=== PATIENT | female | born 1985 | race African-American/Black ===

== ENCOUNTER 2017-07-10 16:31 | Emergency (ER) | payer MEDICAID ==
[~2017-07-10] VITALS: Ht 152.4 cm; Wt 75.0 kg
[~2017-07-10 16:31] MED LIST: DOXY10TA PO; IBUP600 PO; IBUP800T23 PO; METR1TAB76 PO; PREN1CAP7 PO; PREN29TA PO; TERC0.4C2 VAGINAL
[2017-07-10 16:34] VITALS: BP 147/75; PULSE 100; RESP 14; TEMP 97.7; O2SAT 100
--- NOTE | 2017-07-10 17:56 | PD ---
HPI Chief Complaint: Abdominal Pain Time Seen by Provider: 17:31 Travel History International Travel<30 days: No Contact w/Intl Traveler<30days: No Traveled to known affect area: No History of Present Illness HPI c/o mild llq discomfort, relieved by resting, worsened by ambulating and walking , not just by standing alone, it is a pulling, sometimes sharp discomfort, 3/10 , patient is otherwise normal in all other aspects and is here for eval more out of family pressure than anything else.. denies n/v/d/cp/combs/ also denies vag bleeding pcp: [facility]: amy couch all:nkda pmhx:denies (, 1ab, 1 premie, 1 FT, at 12 weeks gest currently) PFSH Past Medical History Blood Disorders: No Cancer: No Cardiovascular Problems: No Diabetes: No Diminished Hearing: No Endocrine: No Immune Disorder: No Musculoskeletal: No Neurologic: No Psychiatric: No Reproductive: No Respiratory: No Immunizations Current: Yes Thyroid Disease: No Tetanus Vaccination: Unknown ?: LMP: 04/18/17 : 4 Para: 2 Miscarriage: 1 Past Surgical History Section: Yes (x 2) Other Surgery: Yes ( X2) Social History Alcohol Use: No Tobacco Use: Yes Substance Use: No Allergies-Medications (Allergen,Severity, Reaction): Coded Allergies: No Known Allergies (Unverified , 06/18/17) Reported Meds & Prescriptions Reported Meds & Active Scripts Active Macrobid (Nitrofurantoin Monoh/Nitrofur Macro) 100 Mg Cap 100 Mg PO BID Citranatal [place] ( W/O Vit A W/ Fe Fumar) 27-1-260 Mg Cap 1 Cap PO DAILY Plus Iron 29-1 mg ( Vit-Iron Carbonyl) 29 Mg Iron-1 Mg Tab 1 Tab PO DAILY Diclegis (Doxylamine-Pyridoxine) 10-10 Mg Tab 10 Cap PO QHS Review of Systems Except as stated in HPI: all other systems reviewed are Neg General / Constitutional: No: Fever Eyes: No: Visual changes HENT: No: Headaches Cardiovascular: No: Chest Pain or Discomfort Respiratory: No: Shortness of Breath Gastrointestinal: No: Abdominal Pain Genitourinary: No: Dysuria Musculoskeletal: Positive: Pain (left ant hip area pain) Skin: No Rash Neurologic: No: Weakness Psychiatric: No: Depression Endocrine: No: Polydipsia Hematologic/Lymphatic: No: Easy Bruising Physical Exam Narrative GENERAL: SKIN: Warm and dry. HEAD: Atraumatic. Normocephalic. EYES: Pupils equal and round. No scleral icterus. No injection or drainage. ENT: No nasal bleeding or discharge. Mucous membranes pink and moist. NECK: Trachea midline. No JVD. CARDIOVASCULAR: Regular rate and rhythm. RESPIRATORY: No accessory muscle use. Clear to auscultation. Breath sounds equal bilaterally. GASTROINTESTINAL: Abdomen soft, non-tender, gravid abdomen c/w dates, left anterior asis region ttp and reproducible MUSCULOSKELETAL: Extremities without clubbing, cyanosis, or edema. No obvious deformities. NEUROLOGICAL: Awake and alert. No obvious cranial nerve deficits. Motor grossly within normal limits. Five out of 5 muscle strength in the arms and legs. Normal speech. PSYCHIATRIC: Appropriate mood and affect; insight and judgment normal. Data Data Last Documented VS Vital Signs Date Time Temp Pulse Resp B/P (MAP) Pulse Ox O2 Delivery O2 Flow Rate FiO2 07/10/17 19:44 07/10/17 16:34 97.7 100 14 100 Orders Orders Urinalysis - C+S If Indicated (07/10/17 17:46) Urine Culture (07/10/17 18:00) Ed Discharge Order (07/10/17 19:35) Labs Laboratory Tests Test 07/10/17 18:00 Urine Color YELLOW Urine Turbidity HAZY Urine pH 6.0 Urine Specific [place] 1.020 Urine Protein TRACE mg/dL Urine Glucose (UA) NEG mg/dL Urine Ketones NEG mg/dL Urine Occult Blood SMALL Urine Nitrite NEG Urine Bilirubin NEG Urine Urobilinogen 2.0 MG/DL Urine Leukocyte Esterase NEG Urine RBC 2 /hpf Urine WBC 2 /hpf Urine Squamous Epithelial Cells 28 /hpf Urine Bacteria MOD /hpf Urine Mucus FEW /lpf Microscopic Urinalysis Comment CULTURE INDICATED MDM Medical Decision Making Medical Screen Exam Complete: Yes Emergency Medical Condition: Yes Medical Record Reviewed: Yes Differential Diagnosis uti v muscular v uterine ligament Narrative Course ua findings c/w uti will prescribe macrobid...based on physical examination pain was reproducible on palpation c/w muscular strain Procedures Procedure Narrative bedside limited ultrasound: pelvic showed iup, active fetus, fht in 140's Diagnosis Primary Impression: uti Additional Impression: muscle strain Scripts Nitrofurantoin Monohydrate Macrocrystals (Macrobid) 100 Mg Cap 100 MG PO BID for Infection, #14 CAP 0 Refills Prov: Ze Clark MD 07/10/17 Disposition: 01 DISCHARGE HOME Condition: Stable Ze Clark MD Jul 10, 2017 17:56
[2017-07-10 18:26] LABS: BACTERIA, URINE MOD /hpf; BILIRUBIN, URINE NEG (NEG); BLOOD, URINE SMALL (NEG); GLUCOSE,URINE NEG (NEG); KETONE, URINE NEG (NEG); MUCUS URINE FEW /lpf (OCC); NITRITE,URINE NEG (NEG); SQUAMOUS EPITHELIAL CELL URINE 28 /hpf (0-5); URINE COLOR YELLOW (YELLW/STRAW); URINE LEUKOCYTE ESTERASE NEG (NEG)
[2017-07-10] MEDS ORDERED: MACR100C2 PO (18:47)
== END 2017-07-10 20:02 | disposition home or self-care (01) ==
LOC: NEPD 16:31 → MERGE 16:31 → NEPD 20:02
DX: N39.0 Urinary tract infection, site not specified (principal); S39.011A Strain of muscle, fascia and tendon of abdomen, initial encounter; X58.XXXA Exposure to other specified factors, initial encounter; Z72.0 Tobacco use; Z79.899 Other long term (current) drug therapy
CPT/HCPCS: 81001; 87086; 99284

== ENCOUNTER 2017-07-14 04:17 | Emergency (ER) | payer MEDICAID ==
[~2017-07-14] VITALS: Ht 152.4 cm; Wt 75.0 kg
[~2017-07-14 04:17] MED LIST changes: +MACR100C2 PO; -METR1TAB76 PO; -TERC0.4C2 VAGINAL
[2017-07-14 04:19] VITALS: BP 119/70; PULSE 108; RESP 16; TEMP 98.1; O2SAT 99
[2017-07-14 05:44] LABS: BETA HCG QUANT 121222 MIU/ML (0-5)
[2017-07-14 06:12] LABS: BLOOD, URINE LARGE (NEG); COMMENT (UR) CULTURE INDICATED; CULTURE IF INDICATED CULTURE INDICATED; GLUCOSE,URINE NEG (NEG); KETONE, URINE NEG (NEG); MUCUS URINE FEW /lpf (OCC); NITRITE,URINE NEG (NEG); PH, URINE 6.5 (5.0-8.5)
[2017-07-14 06:13] LABS: URINE COLOR RED (YELLW/STRAW)
[2017-07-14 06:19] VITALS: BP 110/64; PULSE 81; RESP 16; TEMP 98.3; O2SAT 99
--- NOTE | 2017-07-14 06:27 | PD ---
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 pt c/o vaginal bleeding since she woke up this morning at 3am. Multiple episodes, approx 10 pads, no clots, no abnormal discharge. pt reports dx of UTI 2 days prior and she has been compliant with abx. no fever/chills. no abdominal/pelvic pain. PFSH Past Medical History Asthma: No Blood Disorders: No Anxiety: Yes Depression: No Heart Rhythm Problems: No Cancer: No High Cholesterol: Yes Chest Pain: No Congestive Heart Failure: No COPD: No Diminished Hearing: No Endocrine: No Gastrointestinal Disorders: No Genitourinary: No Hypertension: No Immune Disorder: No Implanted Vascular Access Dvce: No Musculoskeletal: No Neurologic: No Reproductive: No Respiratory: Yes (BRONCHITIS) Immunizations Current: Yes Sleep Apnea: No Tetanus Vaccination: < 5 Years ?: LMP: 04/14/2017 12 weeks : 3 Para: 2 : 1 Past Surgical History Section: Yes Gynecologic Surgery: Yes Other Surgery: Yes ( x2) Social History Alcohol Use: Yes (wine occ.) Tobacco Use: No Substance Use: No Allergies-Medications (Allergen,Severity, Reaction): Coded Allergies: No Known Allergies (Verified , 01/27/16) Reported Meds & Prescriptions Reported Meds & Active Scripts Active Ibuprofen 800 Mg Tab 800 Mg PO Q6H PRN Motrin 600 Mg Tab (Ibuprofen) 600 Mg Tab 600 Mg PO Q6H PRN Review of Systems Except as stated in HPI: all other systems reviewed are Neg General / Constitutional: No: Fever Physical Exam Narrative GENERAL: 31 yo F, WNWD, NAD SKIN: Warm and dry. HEAD: Atraumatic. Normocephalic. EYES: Pupils equal and round. No scleral icterus. No injection or drainage. ENT: No nasal bleeding or discharge. Mucous membranes pink and moist. NECK: Trachea midline. No JVD. CARDIOVASCULAR: Regular rate and rhythm. RESPIRATORY: No accessory muscle use. Clear to auscultation. Breath sounds equal bilaterally. GASTROINTESTINAL: Abdomen soft, non-tender, nondistended. Hepatic and splenic margins not palpable. MUSCULOSKELETAL: Extremities without clubbing, cyanosis, or edema. No obvious deformities. NEUROLOGICAL: Awake and alert. No obvious cranial nerve deficits. Motor grossly within normal limits. Five out of 5 muscle strength in the arms and legs. Normal speech. PSYCHIATRIC: Appropriate mood and affect; insight and judgment normal. Data Data Last Documented VS Vital Signs Date Time Temp Pulse Resp B/P (MAP) Pulse Ox O2 Delivery O2 Flow Rate FiO2 07/14/17 06:19 98.3 81 16 110/64 99 07/14/17 04:19 Room Air VS reviewed Orders Orders Beta Hcg (Quant/Titer) (07/14/17 04:31) Urinalysis - C+S If Indicated (07/14/17 04:31) Rhogam Only (07/14/17 04:50) Urine Culture (07/14/17 05:55) Labs Laboratory Tests Test 07/14/17 04:45 07/14/17 05:55 Human Chorionic Gonadotropin, Quant [id number] MIU/ML Urine Color RED Urine Turbidity HAZY Urine pH 6.5 Urine Specific [place] 1.023 Urine Protein 300 mg/dL Urine Glucose (UA) NEG mg/dL Urine Ketones NEG mg/dL Urine Occult Blood LARGE Urine Nitrite NEG Urine Bilirubin NEG Urine Urobilinogen LESS THAN 2.0 MG/DL Urine Leukocyte Esterase TRACE Urine RBC /hpf Urine WBC 66 /hpf Urine Mucus FEW /lpf Microscopic Urinalysis Comment CULTURE INDICATED MDM Medical Decision Making Medical Screen Exam Complete: Yes Emergency Medical Condition: Yes Medical Record Reviewed: Yes Differential Diagnosis threatened ab, uti, complete ab Narrative Course ta sono: IUP with FHR approx 140s rhogam given Beta 121,000; 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 Hopefully, we have met your expectations on today's visit. You are welcome to return to [facility] at any time, as we are committed to meeting the health care needs of our community. FOLLOW UP WITH PATTERN MARKER IN 48 HOURS FOR A "REPEAT BETA HCG TEST." Med/Other Pt SpecificInfo: Prescription(s) given Disposition: DISCHARGE HOME Condition: Stable Js Espinoza MD Jul 14, 2017 06:27
== END 2017-07-14 07:04 | disposition home or self-care (01) ==
LOC: NEPE 04:17
DX: O20.0 Threatened abortion (principal); R82.90 Unspecified abnormal findings in urine; Z3A.12 12 weeks gestation of pregnancy
CPT/HCPCS: 81001; 84702; 87086; 90384; 99283; J2790

== ENCOUNTER → 2017-08-26 | Outpatient (CLI) | payer MEDICAID ==
[~2017-08-26] MED LIST changes: -MACR100C2 PO
== END ==
LOC: HPND 09:08
PROVIDERS: ATTEND Obstetrics & Gynecology
DX: O30.032 Twin pregnancy, monochorionic/diamniotic, second trimester (principal); O34.212 Maternal care for vertical scar from previous cesarean delivery; O99.332 Smoking (tobacco) complicating pregnancy, second trimester
CPT/HCPCS: 76811; 76812; 76817

== ENCOUNTER → 2017-09-09 | Outpatient (CLI) | payer MEDICAID | LOC: HPND 11:25 | PROVIDERS: ATTEND Obstetrics & Gynecology | DX: O30.032 Twin pregnancy, monochorionic/diamniotic, second trimester (principal) | CPT/HCPCS: 76815; 76817 ==

== ENCOUNTER → 2017-09-23 | Outpatient (CLI) | payer MEDICAID ==
[~2017-09-23] MED LIST changes: -IBUP600 PO; -IBUP800T23 PO
== END ==
LOC: HPND 09:50
PROVIDERS: ATTEND Obstetrics & Gynecology
DX: O35.8XX0 Maternal care for other (suspected) fetal abnormality and damage, not applicable or unspecified (principal); O30.032 Twin pregnancy, monochorionic/diamniotic, second trimester; O40.2XX2 Polyhydramnios, second trimester, fetus 2
CPT/HCPCS: 76816; 76825; 76827; 93325

== ENCOUNTER 2017-12-04 08:30 | Observation (INO) | payer MEDICAID ==
[2017-12-04] VITALS (60 sets, daily range): BP systolic 120–134; BP diastolic 63–81; PULSE 49–114; RESP 18; TEMP 97.4–98.1
[~2017-12-04] VITALS: Ht 154.9 cm; Wt 83.0 kg
[2017-12-04] MEDS ORDERED: LACTATED RINGER'S 1000 ML INJ 1,000 ML IV ONE (09:45)
--- NOTE | 2017-12-04 09:50 | PD ---
HPI Chief Complaint cough Date Seen: Dec 04, 2017 Time Seen: 09:10 Travel History International Travel<30 Days: No Contact w/Intl Traveler<30Days: No Known Affected Area: No History of Present Illness HPI Ms. Peraza is a 32-year-old at 31/6 weeks gestation with monochorionic- diamniotic twins here due to concern about cough. She states that she has been having a productive cough for 2 weeks. Is productive of at first greenish sputum, but now is clear. She had a fever on Thursday, 2 days ago, of 101F, but no fever since. She does experience occasional chills. She spoke to her OB provider at [facility] who recommended Robitussin-DM, Benadryl, Tylenol Cold and flu. However, these medications have not worked for her. She is also experiencing a stuffy nose and rhinorrhea of clear mucus. She states that she has abdominal pain when she coughs. No pleuritic pain. No chest pain, shortness of breath. She did have a sick contact 2-3 weeks ago before her symptoms started. No vaginal bleeding, is having contractions but they are not regular, is feeling the babies move, no dysuria. 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 Denies alcohol, tobacco, or illicit drug use Alcohol Use: No Tobacco Use: No Substance Abuse: No Allergies-Medications (Allergen,Severity, Reaction): Coded Allergies: No Known Allergies (Verified Allergy, Unknown, 12/04/17) Home Meds Active Scripts W/O Vit A W/ Fe Fumar (Citranatal [place]) 27-1-260 Mg Cap, 1 CAP PO DAILY for Nutritional Supplement, #30 CAP 5 Refills Prov:Daysi De La Rosa CNM POWER SWITCHBOARD OPERATOR 06/23/17 Vit-Iron Carbonyl ( Plus Iron 29-1 mg) 29 Mg Iron-1 Mg Tab, 1 TAB PO DAILY for Nutritional Supplement, #30 TAB 6 Refills Prov:Daysi De La Rosa MASSIMO MALAVE 06/23/17 Doxylamine-Pyridoxine (Diclegis) 10-10 Mg Tab, 10 CAP PO qhs for nausea, #30 CAP 2 Refills Prov:Nikhil Isidro MD 06/18/17 Review of Systems General / Constitutional: Fever (101F 2 days ago), Chills (occasionally) Eyes: No: Blurred Vision Cardiovascular: No: Chest Pain or Discomfort Respiratory: Cough, No: Short of Breath Gastrointestinal: Abdominal Pain (with coughing) Genitourinary: No: Dysuria Musculoskeletal: No: Weakness, Edema Skin: No Rash Physical Exam Narrative GENERAL: Well-nourished, well-developed patient. SKIN: Warm and dry. HEAD: Normocephalic and atraumatic. EYES: No scleral icterus. No injection or drainage. ENT: No nasal drainage noted. Mucous membranes pink. Airway patent. NECK: Supple, trachea midline. No JVD. CARDIOVASCULAR: Regular rate and rhythm without murmurs, gallops, or rubs. RESPIRATORY: Breath sounds equal bilaterally. No accessory muscle use. BREASTS: Bilateral exam showed no masses , no retractions, no nipple discharge. ABDOMEN/GI: Abdomen soft, non-tender, bowel sounds present, no rebound, no guarding Gravid to 31 weeks size GENITOURINARY: External Genitalia: intact and normal in appearance Cervix: posterior Dilatation: 0 Effacement: 50 Station: high Presentation: both twins were breech on last ultrasound Membranes: intact Uterine Contractions: q2-5min FHT's: Category: 1 Baseline: Twin A 130s, Twin B 140s Reactive: yes Variability: moderate Decels: none EXTREMITIES: No cyanosis or edema. BACK: Nontender without obvious deformity. No CVA tenderness. NEUROLOGICAL: Awake and alert. Motor and sensory grossly within normal limits. Five out of 5 muscle strength in all muscle groups. Normal speech. Data Data Vital Signs Reviewed: Yes Orders Orders Vital Signs (Adult) .ON ADMISSION (12/04/17 09:31) ^ Labor Status (12/04/17 09:31) ^ Non Stress Test (12/04/17 09:31) ^ Hydration (12/04/17 09:31) Influenzae A/B Antigen (12/04/17 09:31) MDM Plan 32-year-old and 31/6 weeks gestation of monochorionic-diamniotic twins resenting with URI symptoms. CBC shows no leukocytosis. FHT shows category 1 tracing, reassuring; however, patient is dion every 2-5 minutes Cervix is closed, 50% effaced, and high -FFN negative -LR bolus -UA, CBC -One dose of Terbutaline 0.25mg IM Influenza B positive -Start Tamiflu 75mg BID po -Phenergan-Codeine 5ml po q4h for cough Marcela Quiroz MD R1 Dec 04, 2017 09:50
[2017-12-04 10:42] LABS: BASOPHIL % 0.2 % (0.0-2.0); EOSINOPHIL % 0.5 % (0.0-4.0); HEMATOCRIT 37.5 % (35.0-46.0); HEMOGLOBIN 12.3 GM/DL (11.6-15.3); LYMPH % 14.9 % (9.0-44.0); LYMPHOCYTE # 0.8 TH/MM3 (1.0-4.8); MEAN CELL VOLUME 79.7 FL (80.0-100.0); MEAN CORPUSCULAR HEMOGLOBIN 26.2 PG (27.0-34.0); MEAN CORPUSCULAR HGB CONC 32.8 % (32.0-36.0); MEAN PLATELET VOLUME 9.1 FL (7.0-11.0); MONO % 8.6 % (0.0-8.0); MONOCYTE # 0.5 TH/MM3 (0-0.9); NEUT % 75.8 % (16.0-70.0); PLATELET COUNT 184 TH/MM3 (150-450); RED BLOOD COUNT 4.71 MIL/MM3 (4.00-5.30); RED CELL DISTRIBUTION WIDTH 15.7 % (11.6-17.2); WHITE BLOOD COUNT 5.3 TH/MM3 (4.0-11.0)
[2017-12-04] MEDS ORDERED: TERBUTALINE INJ 1 MG/ML AMP ONE (10:59)
[2017-12-04] MEDS ORDERED: TERBUTALINE INJ 1 MG/ML AMP SQ ONE (11:00)
[2017-12-04 11:02] LABS: BACTERIA, URINE FEW /hpf; BILIRUBIN, URINE NEG (NEG); BLOOD, URINE NEG (NEG); GLUCOSE,URINE NEG (NEG); KETONE, URINE NEG (NEG); NITRITE,URINE NEG (NEG); PH, URINE 6.5 (5.0-8.5); SQUAMOUS EPITHELIAL CELL URINE 9 /hpf (0-5); URINE COLOR YELLOW (YELLW/STRAW); URINE LEUKOCYTE ESTERASE LARGE (NEG)
[2017-12-04] MEDS: OSELTAMIVIR PHOSPHATE 75 MG CAP PO SCH ×2 (11:56→23:50)
[2017-12-04] MEDS: PROMETHAZINE/CODEINE 6.25 MG/10 MG/5 ML CUP PO PRN ×2 (11:56→23:50)
[2017-12-04] MEDS ORDERED: SODIUM CHLORIDE 0.9% FLUSH 10 ML FLUSH IV FLUSH PRN (13:00)
[2017-12-04] MEDS ORDERED: ONDANSETRON ODT 4 MG TAB PO PRN (13:00)
[2017-12-04] MEDS ORDERED: ZOLPIDEM TARTRATE 5 MG TAB PO PRN (13:00)
[2017-12-04] MEDS ORDERED: ONDANSETRON HCL 4 MG/2 ML VIAL IV PUSH PRN (13:00)
[2017-12-04] MEDS ORDERED: ALUMINUM/MAGNESIUM/SIMETH 30 ML CUP PO PRN (13:00)
[2017-12-04] MEDS ORDERED: ACETAMINOPHEN 325 MG TAB PO PRN (13:00)
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
--- NOTE | 2017-12-04 15:12 | HHI.HP ---
HPI Chief Complaint cough Date Seen: Dec 04, 2017 Time Seen: 15:12 Travel History International Travel<30 Days: No Contact w/Intl Traveler<30Days: No Known Affected Area: No History of Present Illness HPI Ms. Peraza is a 32-year-old at 31/6 weeks gestation with monochorionic- diamniotic twins here due to concern about cough. She states that she has been having a productive cough for 2 weeks. Is productive of at first greenish sputum, but now is clear. She had a fever on Thursday, 2 days ago, of 101F, but no fever since. She does experience occasional chills. She spoke to her OB provider at [facility] who recommended Robitussin-DM, Benadryl, Tylenol Cold and flu. However, these medications have not worked for her. She is also experiencing a stuffy nose and rhinorrhea of clear mucus. She states that she has abdominal pain when she coughs. No pleuritic pain. No chest pain, shortness of breath. She did have a sick contact 2-3 weeks ago before her symptoms started. No vaginal bleeding, is having contractions but they are not regular, is feeling the babies move, no dysuria. 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 Denies alcohol, tobacco, or illicit drug use Alcohol Use: No Tobacco Use: No Substance Abuse: No Allergies-Medications (Allergen,Severity, Reaction): Coded Allergies: No Known Allergies (Verified Allergy, Unknown, 12/04/17) Home Meds Active Scripts W/O Vit A W/ Fe Fumar (Citranatal [place]) 27-1-260 Mg Cap, 1 CAP PO DAILY for Nutritional Supplement, #30 CAP 5 Refills Prov:Daysi De La Rosa CNM 06/23/17 Vit-Iron Carbonyl ( Plus Iron 29-1 mg) 29 Mg Iron-1 Mg Tab, 1 TAB PO DAILY for Nutritional Supplement, #30 TAB 6 Refills Prov:Daysi De La Rosa MASSIMO PAINT STOCKMAN 06/23/17 Doxylamine-Pyridoxine (Diclegis) 10-10 Mg Tab, 10 CAP PO qhs for nausea, #30 CAP 2 Refills Prov:Nikhil Isidro MD 06/18/17 Review of Systems General / Constitutional: Fever, Chills Cardiovascular: No: Chest Pain or Discomfort Respiratory: No: Short of Breath Gastrointestinal: Abdominal Pain Genitourinary: No: Dysuria Musculoskeletal: No: Weakness, Edema Skin: No Rash Physical Exam Vital Signs Date Time Temp Pulse Resp B/P (MAP) Pulse Ox O2 Delivery O2 Flow Rate FiO2 12/04/17 10:20 91 12/04/17 10:19 89 125/71 (89) 12/04/17 10:15 98 12/04/17 09:55 95 12/04/17 09:50 101 12/04/17 09:45 99 12/04/17 09:25 49 12/04/17 09:20 100 12/04/17 09:10 100 12/04/17 09:08 98 127/81 (96) Narrative GENERAL: Well-nourished, well-developed patient. SKIN: Warm and dry. HEAD: Normocephalic and atraumatic. EYES: No scleral icterus. No injection or drainage. ENT: No nasal drainage noted. Mucous membranes pink. Airway patent. NECK: Supple, trachea midline. No JVD. CARDIOVASCULAR: Regular rate and rhythm without murmurs, gallops, or rubs. RESPIRATORY: Breath sounds equal bilaterally. No accessory muscle use. BREASTS: Bilateral exam showed no masses , no retractions, no nipple discharge. ABDOMEN/GI: Abdomen soft, non-tender, bowel sounds present, no rebound, no guarding Gravid to 31 weeks size GENITOURINARY: External Genitalia: intact and normal in appearance Cervix: posterior Dilatation: 0 Effacement: 50 Station: high Presentation: both twins were breech on last ultrasound Membranes: intact Uterine Contractions: q2-5min FHT's: Category: 1 Baseline: Twin A 130s, Twin B 140s Reactive: yes Variability: moderate Decels: none EXTREMITIES: No cyanosis or edema. BACK: Nontender without obvious deformity. No CVA tenderness. NEUROLOGICAL: Awake and alert. Motor and sensory grossly within normal limits. Five out of 5 muscle strength in all muscle groups. Normal speech. Caprini VTE Risk Assessment Caprini VTE Risk Assessment: Mod/High Risk (score >= 2) Caprini Risk Assessment Model Point Value = 1 Point Value = 2 Point Value = 3 Point Value = 5 Age 41-60 Minor surgery BMI > 25 kg/m2 Swollen legs Varicose veins or History of unexplained or recurrent spontaneous Oral contraceptives or hormone replacement Sepsis (< 1 month) Serious lung disease, including pneumonia (< 1 month) Abnormal pulmonary function Acute myocardial infarction Congestive heart failure (< 1 month) History of inflammatory bowel disease Medical patient at bed rest Age 61-74 Arthroscopic surgery Major open surgery (> 45 min) Laparoscopic surgery (> 45 min) Malignancy Confined to bed (> 72 hours) Immobilizing plaster cast Central venous access Age >= 75 History of VTE Family history of VTE Factor V Leiden Prothrombin [id number] Lupus anticoagulant Anticardiolipin antibodies Elevated serum homocysteine Heparin-induced thrombocytopenia Other congenital or acquired thrombophilia Stroke (< 1 month) Elective arthroplasty Hip, pelvis, or leg fracture Acute spinal cord injury (< 1 month) Prophylaxis Regimen Total Risk Factor Score Risk Level Prophylaxis Regimen 0-1 Low Early ambulation 2 Moderate Order ONE of the following: *Sequential Compression Device (SCD) *Heparin 5000 units SQ BID 3-4 Higher Order ONE of the following medications: *Heparin 5000 units SQ TID *Enoxaparin/Lovenox 40 mg SQ daily (WT < 150 kg, CrCl > 30 mL/min) *Enoxaparin/Lovenox 30 mg SQ daily (WT < 150 kg, CrCl > 10-29 mL/min) *Enoxaparin/Lovenox 30 mg SQ BID (WT < 150 kg, CrCl > 30 mL/min) AND/OR *Sequential Compression Device (SCD) 5 or more Highest Order ONE of the following medications: *Heparin 5000 units SQ TID (Preferred with Epidurals) *Enoxaparin/Lovenox 40 mg SQ daily (WT < 150 kg, CrCl > 30 mL/min) *Enoxaparin/Lovenox 30 mg SQ daily (WT < 150 kg, CrCl > 10-29 mL/min) *Enoxaparin/Lovenox 30 mg SQ BID (WT < 150 kg, CrCl > 30 mL/min) AND *Sequential Compression Device (SCD) Data Data Vital Signs Reviewed: Yes Orders Orders Vital Signs (Adult) .ON ADMISSION (12/04/17 09:31) ^ Labor Status (12/04/17 09:31) ^ Non Stress Test (12/04/17 09:31) ^ Hydration (12/04/17 09:31) Influenzae A/B Antigen (12/04/17 09:31) Lactated Ringer's 1000 Ml Inj (Lr 1000 M (12/04/17 09:45) Urinalysis - C+S If Indicated (12/04/17 09:42) Complete Blood Count With Diff (12/04/17 09:42) Fibronectin (12/04/17 09:44) Terbutaline Inj (Brethine Inj) (12/04/17 11:00) Terbutaline Inj (Brethine Inj) (12/04/17 10:59) Promethazine/Codeine Liq (Phenergan-Code (12/04/17 11:30) Oseltamivir (Tamiflu) (12/04/17 12:00) Lactated Ringer's 1000 Ml Inj (Lr 1000 M (12/04/17 11:30) Ob (2e) Additional Admit Info (12/04/17 12:54) Place In Observation (12/04/17 ) Diet Regular Basic (12/04/17 Lunch) Vital Signs (Adult) PAUL.[id number] AWAKE (12/04/17 12:59) Heart (12/04/17 12:59) ^ Monitor (12/04/17 12:59) Activity Bed Rest With Brp (12/04/17 12:59) Acetaminophen (Tylenol) (12/04/17 13:00) Onnjdmiq-Pov-Vyzgi-Iron Prenat (Stuartna (12/05/17 09:00) Docusate Sodium (Colace) (12/05/17 09:00) Al-Mag Hy-Si 40-40-4 Mg/Ml Liq (Mag-Al P (12/04/17 13:00) Sodium Chloride 0.9% Flush (Ns Flush) (12/04/17 21:00) Sodium Chloride 0.9% Flush (Ns Flush) (12/04/17 13:00) Zolpidem (Ambien) (12/04/17 13:00) Ondansetron Odt (Zofran Odt) (12/04/17 13:00) Ondansetron Inj (Zofran Inj) (12/04/17 13:00) Us Ob Limited (12/04/17 12:59) Ferrous Sulfate (Ferrous Sulfate) (12/04/17 21:00) Chest, Pa & Lat (12/04/17 ) Scd Bilateral/Knee High PAUL.QSHIFT (12/04/17 13:47) Scd Bilateral/Knee High PAUL.QSHIFT (12/04/17 13:54) Labs Laboratory Tests Test 12/04/17 09:45 White Blood Count 5.3 Red Blood Count 4.71 Hemoglobin 12.3 Hematocrit 37.5 Mean Corpuscular Volume 79.7 Mean Corpuscular Hemoglobin 26.2 Mean Corpuscular Hemoglobin Concent 32.8 Red Cell Distribution Width 15.7 Platelet Count 184 Mean Platelet Volume 9.1 Neutrophils (%) (Auto) 75.8 Lymphocytes (%) (Auto) 14.9 Monocytes (%) (Auto) 8.6 Eosinophils (%) (Auto) 0.5 Basophils (%) (Auto) 0.2 Neutrophils # (Auto) 4.0 Lymphocytes # (Auto) 0.8 Monocytes # (Auto) 0.5 Eosinophils # (Auto) 0.0 Basophils # (Auto) 0.0 CBC Comment DIFF FINAL Differential Comment Urine Color YELLOW Urine Turbidity HAZY Urine pH 6.5 Urine Specific [place] 1.022 Urine Protein TRACE Urine Glucose (UA) NEG Urine Ketones NEG Urine Occult Blood NEG Urine Nitrite NEG Urine Bilirubin NEG Urine Urobilinogen 2.0 Urine Leukocyte Esterase LARGE Urine RBC 6 Urine WBC 2 Urine Squamous Epithelial Cells 9 Urine Bacteria FEW Urine Yeast (Budding) RARE Microscopic Urinalysis Comment CULT NOT INDICATED Fibronectin NEGATIVE Date/Time Source Procedure Growth Status 12/04/17 09:45 Nasal Washing Influenza Types A,B Antigen (JANIE) - Final Positive For Flu B Antigen Complete Assessment/Plan Problem List: (1) contractions ICD Codes: O47.9 - False labor, unspecified Status: Acute Plan: 32-year-old and 31/6 weeks gestation of monochorionic-diamniotic twins resenting with URI symptoms. CBC shows no leukocytosis. FHT shows category 1 tracing, reassuring; however, patient is dion every 2-5 minutes Cervix is closed, 50% effaced, and high -FFN negative -LR bolus -UA, CBC -One dose of Terbutaline 0.25mg IM -Continue to monitor for continued contractions overnight (2) Influenza B ICD Codes: J10.1 - Influenza due to other identified influenza virus with other respiratory manifestations Status: Acute Plan: Influenza B positive CXR on 12/04 shows no acute disease -Start Tamiflu 75mg BID po -Phenergan-Codeine 5ml po q4h for cough (3) FEN Status: Acute Plan: Fluids: LR @125 mls/hr Nutrition: Regular basic diet Marcela Quiroz MD R1 Dec 04, 2017 15:12
[2017-12-04] MEDS: LACTATED RINGER'S 1000 ML INJ 1,000 ML IV SCH ×2 (17:22→19:30)
[2017-12-04] MEDS: SODIUM CHLORIDE 0.9% FLUSH 10 ML FLUSH IV FLUSH SCH (21:00)
[2017-12-04] MEDS: FERROUS SULFATE 325 MG (65 MG ELEMENTAL IRON) TAB PO SCH (21:44)
[2017-12-05 05:35] VITALS: BP 123/60; PULSE 88
[2017-12-05 05:36] VITALS: RESP 18; TEMP 98
[2017-12-05] MEDS: LACTATED RINGER'S 1000 ML INJ 1,000 ML IV SCH (05:39)
--- NOTE | 2017-12-05 08:37 | HHI.PR ---
Subjective Remarks Patient is a 32-year-old at 32/0 weeks gestation with monochorionic- diamniotic twins admitted for cough and influenza. She states that she feels better in general but the cough is not improved. The major improvement is that she does not have to stick tissue into her nose but she still has trouble breathing due to nasal congestion. She does have a history of asthma and was on albuterol inhaler but stopped using them. Her last asthmatic attack was last year and she was treated at [facility] in [place]. Objective - Vital Signs Date Time Temp Pulse Resp B/P (MAP) Pulse Ox O2 Delivery O2 Flow Rate FiO2 12/05/17 05:36 98.0 18 12/05/17 05:35 88 123/60 (81) Result Diagram: 12/04/17 0945 Objective Remarks GENERAL: Well-nourished, well-developed patient, appears uncomfortable but not in acute respiratory distress SKIN: Warm and dry. HEAD: Normocephalic and atraumatic. EYES: No scleral icterus. No injection or drainage. ENT: No nasal drainage noted. Mucous membranes pink. Airway patent. NECK: Supple, trachea midline. No JVD. CARDIOVASCULAR: Regular rate and rhythm without murmurs, gallops, or rubs. RESPIRATORY: Breath sounds equal bilaterally but poor air movement. No accessory muscle use. ABDOMEN/GI: Abdomen soft, non-tender, bowel sounds present, no rebound, no guarding MSK: Nontender, no edema, no cyanosis A/P Assessment and Plan 32-year-old at 32/0 weeks gestation with monochorionic-diamniotic twins admitted for cough and influenza IUP -[place] di twins -Continue routine care Influenza B -Continue Tamiflu -Add tessalon perrles -Stay hydrated -Bedrest -Pelvic rest FEN -DC IV fluids - oral fluids only -Monitor electrolytes as needed -Regular diet only Discharge Planning Possibly later in the day around noon with clinical improvement. Kaylene Rojo MD Dec 05, 2017 08:36
[2017-12-05 08:49] VITALS: BP 111/80; PULSE 90; RESP 18; TEMP 97.7
[2017-12-05] MEDS ORDERED: BENZONATATE 100 MG CAP PO PRN (09:00)
[2017-12-05] MEDS ORDERED: MULTIVIT/MIN/PREN/FOL AC/IRON PRENATAL TAB PO SCH (09:00)
[2017-12-05] MEDS ORDERED: DOCUSATE SODIUM 100 MG CAP PO SCH (09:00)
[2017-12-05] MEDS: SODIUM CHLORIDE 0.9% FLUSH 10 ML FLUSH IV FLUSH SCH (09:00)
[2017-12-05] MEDS: FERROUS SULFATE 325 MG (65 MG ELEMENTAL IRON) TAB PO SCH (09:49)
[2017-12-05] MEDS: OSELTAMIVIR PHOSPHATE 75 MG CAP PO SCH (09:49)
[2017-12-05] MEDS ORDERED: FERR325T20 PO (10:16)
[2017-12-05] MEDS ORDERED: OSEL75 PO (10:16)
[2017-12-05] MEDS ORDERED: BENZ100 PO (10:16)
[2017-12-05] MEDS ORDERED: Promethazine/Codeine Liq PO (10:16)
--- NOTE | 2017-12-05 10:16 | HHI.DCPOC ---
Discharge Care Plan Diagnosis: (1) Influenza B (2) contractions (3) Monochorionic diamniotic twin gestation in third trimester Report Symptoms to Your Doctor -Temperature above 100.5 degrees -Redness, of incision or excessive or foul smelling drainage -Unusual pain or calf pain -Increased vaginal bleeding -Painful or difficulty urinating -Feelings of extreme sadness or anxiety after 2 weeks Goals to Promote Your Health * To prevent worsening of your condition and complications * To maintain your health at the optimal level Directions to Meet Your Goals Take your medications as prescribed Follow your dietary instruction Follow activity as directed Ensure plenty of rest for recovery Drink fluids for hydration Keep your appointments as scheduled Take your immunizations and boosters as scheduled If your symptoms worsen call your PCP, if no PCP go to Urgent Care Center or Emergency Room Smoking is Dangerous to Your Health. Avoid second hand smoke Call the 24-hour crisis hotline for domestic abuse at Kaylene Rojo MD Dec 05, 2017 10:16
== END 2017-12-05 11:50 | disposition home or self-care (01) ==
LOC: HOBED 08:30 → H2EA 13:01
PROVIDERS: ADMIT Obstetrics & Gynecology; ATTEND Obstetrics & Gynecology
DX: O99.513 Diseases of the respiratory system complicating pregnancy, third trimester (principal); J10.1 Influenza due to other identified influenza virus with other respiratory manifestations; O47.9 False labor, unspecified; R05 Cough; R10.9 Unspecified abdominal pain; O30.033 Twin pregnancy, monochorionic/diamniotic, third trimester; Z3A.32 32 weeks gestation of pregnancy; Z80.49 Family history of malignant neoplasm of other genital organs
CPT/HCPCS: 71046; 76815; 81001; 82731; 85025; 87804; 96360; 96361; 96372; 99285; G0378; J3105; J7120

== ENCOUNTER → 2017-12-09 | Outpatient (CLI) | payer MEDICAID ==
[2017-12-09] MEDS: BETAMETHASONE SOD PHOS/ACETATE SUSP 30 MG/5 ML VIAL IM (10:40)
[2017-12-10] MEDS: BETAMETHASONE SOD PHOS/ACETATE SUSP 30 MG/5 ML VIAL IM (11:00)
== END ==
LOC: HOBG 09:07
DX: O60.03 Preterm labor without delivery, third trimester (principal)
CPT/HCPCS: 96372

== ENCOUNTER 2018-01-02 08:08 | Inpatient (IN) | payer MEDICAID ==
[~2018-01-02] VITALS: Ht 154.9 cm; Wt 86.0 kg
[2018-01-02] VITALS (28 sets, daily range): BP systolic 103–127; BP diastolic 49–79; PULSE 63–94; RESP 17–18; TEMP 97.4–97.9; O2SAT 97–99
[~2018-01-02 08:08] MED LIST changes: +BENZ100 PO; +FERR325T20 PO; +OSEL75 PO; +Promethazine/Codeine Liq PO
[2018-01-02] MEDS ORDERED: LACTATED RINGER'S 1000 ML INJ 1,000 ML IV ONE ×2 (08:49→12:00)
[2018-01-02 09:16] LABS: AUTOMATED NEUTROPHIL # 5.7 TH/MM3 (1.8-7.7); BASOPHIL % 0.2 % (0.0-2.0); EOSINOPHIL # 0.1 TH/MM3 (0-0.4); EOSINOPHIL % 0.9 % (0.0-4.0); HEMATOCRIT 38.4 % (35.0-46.0); LYMPH % 20.9 % (9.0-44.0); LYMPHOCYTE # 1.7 TH/MM3 (1.0-4.8); MEAN CELL VOLUME 78.9 FL (80.0-100.0); MEAN CORPUSCULAR HEMOGLOBIN 26.8 PG (27.0-34.0); MEAN PLATELET VOLUME 9.2 FL (7.0-11.0); MONO % 8.1 % (0.0-8.0); MONOCYTE # 0.7 TH/MM3 (0-0.9); NEUT % 69.9 % (16.0-70.0); PLATELET COUNT 191 TH/MM3 (150-450); RED BLOOD COUNT 4.87 MIL/MM3 (4.00-5.30); RED CELL DISTRIBUTION WIDTH 17.3 % (11.6-17.2); WHITE BLOOD COUNT 8.2 TH/MM3 (4.0-11.0)
[2018-01-02] MEDS ORDERED: LACTATED RINGER'S 1000 ML INJ 1,000 ML IV SCH (09:19)
[2018-01-02] MEDS ORDERED: ACETAMINOPHEN 1000 MG/100 ML 100 ML IV ONE (09:25)
[2018-01-02] MEDS ORDERED: MORPHINE SULFATE PF 5 MG/10 ML VIAL ONE (09:25)
[2018-01-02 09:37] LABS: AMORPHOUS SEDIMENT, URINE FEW; BACTERIA, URINE RARE /hpf; BILIRUBIN, URINE NEG (NEG); BLOOD, URINE NEG (NEG); GLUCOSE,URINE NEG (NEG); KETONE, URINE NEG (NEG); MUCUS URINE FEW /lpf (OCC); NITRITE,URINE NEG (NEG); PH, URINE 6.5 (5.0-8.5); SQUAMOUS EPITHELIAL CELL URINE 9 /hpf (0-5); URINE COLOR LIGHT-YELLOW (YELLW/STRAW); URINE LEUKOCYTE ESTERASE LARGE (NEG)
[2018-01-02] MEDS ORDERED: ceFAZolin 2 GM PREMIX 50 ML IV SCH (10:00)
--- NOTE | 2018-01-02 10:21 | HHI.HP ---
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 She presents today for repeat. No LOF, VB, ctx. +FMx2. She has PNC at [facility]. is complicated by: 1. mono/di twins (elevated S/D ratio x2) 2. h/o CSx2 3. Rh negative (s/p Rhogam 07/14/17) 4. rubella non immune 5. glucose intolerance (failed 1hr, passed 3hr) 6. h/o A1GDM with first baby 7. ECF twin B (normal NIPT) OBHx: 1. 12/2006 1' CS for failure to dilate, macrosomia, A1GDM 2. 06/2009 rCS 3. 2016 SAB 4. current PMH: hyperlipidemia (no meds) PSH: h/o CSx2 FH: non-contributory SH: denies tobacco, EtOH, illicits Meds: PNVs Aller: NKDA Labs: AB-, antibody neg, Hgb 12.0, RPR neg, HIV neg, UCx neg, HBV neg, HIV neg, , RNI, GC/CT neg, HgbAA, 1hr 152 (3hr normal) Imagin12/21/17 Baby A - HR 152, LUIS M pocket 3.6cm, BPP 10/10, breech, S/D 5.59 Baby B - HR 134, LUIS M pocket 7.4cm, BPP 10/10, transverse, S/D 5.75 PE: General: well developed, well nourished, no acute distress HEENT: normocephalic atraumatic, extraocular movements intact, neck supple Extremities: full range of motion Skin: normal coloration, no rashes, no suspicious skin lesions noted Neurologic: cranial nerves 2-12 grossly intact, normal muscle tone, normal gait Psychiatric: normal mood and affect, appropriate A/P: 32y/o @ 36 wks with mono/di twins, h/o CSx2, Rh negative, rubella non immune, glucose intolerance (failed 1hr, passed 3hr), h/o A1GDM with first baby, ECF twin B (normal NIPT) R/B/A of were discussed with the patient. Specifically we reviewed risks of bleeding, infection, pain, injury to baby or internal organs/nerves/ vessels/structures. We reviewed the rare but possible need for emergency hysterectomy if uncontrolled bleeding occurs. She was also counseled on the rare but possible need for a blood transfusion and the associated risks of allergic reaction, HIV (1:1M), and hepatitis (4:1M). She voiced understanding, all questions were answered. Scheduled for rCS (NO BTL) on Thursday, January 02 (36.0wks for mono/di twins) which was approved by [facility]. Pt aware that delivery date may change pending status/Dopplers. Pt given handout which was reviewed. Alessio Loredo II, MD Jan 02, 2018 10:21
[2018-01-02] MEDS ORDERED: CITRIC ACID-SODIUM CITRATE LIQ 30 ML UDC PO SCH (10:30)
[2018-01-02] MEDS ORDERED: SODIUM CHLORIDE 0.9% FLUSH 10 ML FLUSH IV FLUSH PRN (12:00)
[2018-01-02] MEDS ORDERED: ONDANSETRON HCL 4 MG/2 ML VIAL IV ONE (12:00)
[2018-01-02] MEDS ORDERED: OXYTOCIN 10 UNIT/ML AMP IV ONE (12:00)
[2018-01-02] MEDS ORDERED: KETOROLAC TROMETHAMINE 60 MG/2 ML (IM) VIAL IM PRN ×2 (12:00→14:00)
[2018-01-02] MEDS ORDERED: SIMETHICONE 80 MG CHEWABLE TAB PO PRN (12:00)
[2018-01-02] MEDS ORDERED: DEXAMETHASONE SOD PHOS 4 MG/ML VIAL IV ONE (12:00)
[2018-01-02] MEDS ORDERED: ACETAMINOPHEN 325 MG TAB PO PRN (12:00)
[2018-01-02] MEDS ORDERED: EPINEPHrine HCL (1:1000) 1 MG/ML VIAL IV ONE (12:00)
[2018-01-02] MEDS ORDERED: ONDANSETRON HCL 4 MG/2 ML VIAL IV PUSH PRN (12:00)
[2018-01-02] MEDS ORDERED: OXYTOCIN 30 UNITS-500ML PREMIX 500 ML IV ONE (12:00)
[2018-01-02] MEDS ORDERED: oxyCODONE/ACETAMINOPHEN 5 MG/325 MG TAB PO PRN (12:00)
[2018-01-02] MEDS ORDERED: PHENYLEPH/NS 1000 MCG/10 ML SYR IV ONE (12:00)
[2018-01-02] MEDS ORDERED: diphenhydrAMINE HCL 50 MG/ML VIAL ONE (12:11)
[2018-01-02] MEDS ORDERED: OXYTOCIN 30 UNITS-500ML PREMIX 500 ML ONE (12:48)
--- NOTE | 2018-01-02 13:15 | MP ---
cc: Alessio Loredo MD DATE OF OPERATION: 01/02/2018 DATE OF PROCEDURE: 01/02/2018 PREOPERATIVE DIAGNOSIS: Previous section at 36 weeks for repeat section, twin gestation. POSTOPERATIVE DIAGNOSES: Previous section at 36 weeks for repeat section, twin gestation. PROCEDURE PERFORMED: Repeat low transverse section. SURGEON: Alessio Loredo MD PROFESSIONAL SERVICES CONSULTANT: Zhang. ANESTHESIA: Spinal. PREOPERATIVE NOTE: The patient is a 32-year-old black female, G4, P2 with twin gestation at 36 weeks, who has been followed by the team, and they have recommended delivery at 36-37 weeks due to abnormalities in the umbilical cord diastolic flow pattern. Also, the known monochorionic diamniotic gestation and they recommended earlier delivery due to these factors. Babies in a breech-breech presentation. DESCRIPTION OF PROCEDURE: The patient was taken to the operating room and placed in supine position on the operating table. After adequate spinal anesthesia was administered, she was prepped and draped for abdominal surgery. A previous Pfannenstiel incision was excised out and cast off. The incision then carried through the fascia sharply and the fascia dissected off the rectus muscle laterally. The peritoneal cavity entered sharply in the midline. The incision extended superior and inferiorly. Bladder blade placed on the lower incision. The visceral peritoneum reflected off the lower uterine segment and placed behind the bladder blade. A transverse hysterotomy site extended bluntly bilaterally with membranes intact. The baby A was breech and was delivered as a breech without difficulty. That baby was delivered at 10:55 a.m., female , weight 2190 grams, 8 and 9, cord pH 7.21. Delayed cord clamping was done and there were no other complications, the team present for resuscitation. Baby B then delivered at 10:59 a.m., a female, weight 2325 grams, Apgars 7 and 8 and cord pH 7.26 and delayed cord clamping noted as well. The babies were doing well, but did require some CPAP. The placenta was manually extracted and sent to pathology. It was clamped appropriately with a curved clamp on twin A, straight clamp on B. The uterus exteriorized and the hysterotomy closed with a running layer of 0 chromic, followed by imbricating suture of same. Hemostasis achieved with a stick tie. The bladder reapproximated with a running suture of 2-0 Vicryl. Uterus elevated and blood suctioned from cul-de-sac and gutters and the ovaries and tubes inspected and noted to be normal. The uterus was replaced in the peritoneal cavity. The parietal peritoneum closed in running layer of 2-0 Vicryl. Rectus muscle reapproximated with stick tie of chromic. The fascia then closed in running layer of 0 Vicryl. Subcutaneous tissues were reapproximated with a running 3-0 plain catgut suture and the skin closed with subcuticular stitch of 3-0 Monocryl. The 7-day silver dressing was applied because there was a pannus there, and we wanted the incision stayed dry during the 1-2 week postop period. The estimated blood loss was 500 mL. There were no complications. Sponge, needle and instrument correct x 2 and the patient was taken to the recovery room in stable condition. Babies both in NICU. MD DULCE Lynn/TAMIKA , 12:38 PM , 01:14 PM
[2018-01-02] MEDS ORDERED: EPIDURAL-DO NOT ADMINISTER ANTICOAGULANTS PRN (14:00)
[2018-01-02] MEDS ORDERED: EPIDURAL-DIPHENHYDRAMINE HCL 50 MG CAP PO PRN (14:00)
[2018-01-02] MEDS ORDERED: EPIDURAL-DIPHENHYDRAMINE HCL 50 MG/ML VIAL IV PUSH PRN (14:00)
[2018-01-02] MEDS ORDERED: EPIDURAL-NO SYSTEMIC NARCOTICS PRN (14:00)
[2018-01-02] MEDS ORDERED: EPIDURAL-NALOXONE HCL 0.4 MG/ML AMP IV PUSH PRN (14:00)
[2018-01-02] MEDS ORDERED: diphenhydrAMINE HCL 50 MG/ML VIAL IV PRN (14:00)
[2018-01-02] MEDS: LACTATED RINGER'S 1000 ML INJ 1,000 ML IV SCH (17:00)
[2018-01-02] MEDS ORDERED: OXYTOCIN 30 UNITS-500ML PREMIX 500 ML IV PRN (17:00)
[2018-01-02] MEDS: ACETAMINOPHEN 1000 MG/100 ML 100 ML IV SCH (17:40)
[2018-01-02] MEDS ORDERED: ceFAZolin 2 GM PREMIX 100 ML IV SCH (18:00)
[2018-01-02] MEDS: ceFAZolin 2 GM PREMIX 50 ML IV SCH (18:15)
[2018-01-02] MEDS: SODIUM CHLORIDE 0.9% FLUSH 10 ML FLUSH IV FLUSH SCH (21:00)
[2018-01-02] MEDS ORDERED: ZOLPIDEM TARTRATE 5 MG TAB PO PRN (21:00)
[2018-01-03] MEDS: IBUPROFEN 600 MG TAB PO PRN ×4 (00:39→19:02)
[2018-01-03] MEDS: oxyCODONE/ACETAMINOPHEN 5 MG/325 MG TAB PO PRN ×5 (00:39→19:44)
[2018-01-03] MEDS: ACETAMINOPHEN 1000 MG/100 ML 100 ML IV SCH (02:08)
[2018-01-03] MEDS: ceFAZolin 2 GM PREMIX 50 ML IV SCH (02:08)
[2018-01-03] MEDS: LACTATED RINGER'S 1000 ML INJ 1,000 ML IV SCH (03:00)
[2018-01-03 03:54] VITALS: BP 127/75; PULSE 72; RESP 18; TEMP 98.3
[2018-01-03 07:48] LABS: AUTOMATED NEUTROPHIL # 8.5 TH/MM3 (1.8-7.7); BASOPHIL % 0.3 % (0.0-2.0); EOSINOPHIL # 0.1 TH/MM3 (0-0.4); EOSINOPHIL % 0.5 % (0.0-4.0); HEMATOCRIT 32.6 % (35.0-46.0); HEMOGLOBIN 10.5 GM/DL (11.6-15.3); LYMPH % 16.1 % (9.0-44.0); LYMPHOCYTE # 1.8 TH/MM3 (1.0-4.8); MEAN CELL VOLUME 80.4 FL (80.0-100.0); MEAN CORPUSCULAR HGB CONC 32.4 % (32.0-36.0); MEAN PLATELET VOLUME 8.9 FL (7.0-11.0); MONO % 8.5 % (0.0-8.0); NEUT % 74.6 % (16.0-70.0); PLATELET COUNT 174 TH/MM3 (150-450); RED BLOOD COUNT 4.06 MIL/MM3 (4.00-5.30); RED CELL DISTRIBUTION WIDTH 16.8 % (11.6-17.2); WHITE BLOOD COUNT 11.4 TH/MM3 (4.0-11.0)
--- NOTE | 2018-01-03 08:09 | HHI.OB ---
Subjective Post Operative Day: 1 Remarks doing well , c/o soreness no N/V//D AF VSS Objective Vitals/I&O Vital Signs Date Time Temp Pulse Resp B/P (MAP) Pulse Ox O2 Delivery O2 Flow Rate FiO2 01/03/18 03:54 98.3 72 18 127/75 (92) 01/02/18 23:50 97.7 83 18 106/49 (68) 01/02/18 19:57 97.8 73 17 116/69 (85) 01/02/18 14:00 97.9 63 18 109/71 (84) 01/02/18 12:54 97.4 01/02/18 12:48 72 99 01/02/18 12:46 18 103/59 (74) 01/02/18 12:30 70 18 115/64 (81) 98 01/02/18 12:15 63 18 105/61 (76) 98 01/02/18 12:00 76 18 106/54 (71) 97 01/02/18 12:00 97.6 01/02/18 10:00 94 01/02/18 09:55 92 01/02/18 09:50 81 01/02/18 09:45 88 01/02/18 09:40 87 01/02/18 09:35 82 01/02/18 09:30 84 01/02/18 09:25 80 01/02/18 09:20 79 01/02/18 09:15 94 01/02/18 09:10 88 01/02/18 09:05 87 01/02/18 09:00 93 01/02/18 08:55 85 01/02/18 08:53 97.5 18 01/02/18 08:52 90 127/79 (95) 01/02/18 08:50 88 01/02/18 08:45 94 01/02/18 08:40 94 Result Diagram: 01/03/18 0735 Objective Remarks GENERAL: Well-nourished, well-developed patient. CARDIOVASCULAR: Regular rate and rhythm without murmurs, gallops, or rubs. RESPIRATORY: Breath sounds equal bilaterally. No accessory muscle use. ABDOMEN/GI: Abdomen soft, non-tender, bowel sounds present. Incision: Clean, dry and intact. silver 7 day bandage dry adherent Fundus: Firm, non-tender at umbilicus. GENITOURINARY: Light to moderate bleeding. EXTREMITIES: No cyanosis or edema, non-tender, without signs of DVT. Medications and IVs Current Medications Medications (Trade) Dose Ordered Sig/[place] Route Start Time Stop Time Status Last Admin Lactated Ringer's 1,000 ml @ 100 mls/hr Q10H IV 01/02/18 17:00 01/03/18 12:59 Oxytocin 500 ml @ 100 mls/hr UNSCH X1 PRN IV 01/02/18 17:00 01/03/18 16:59 (NS Flush) 2 ml BID IV FLUSH 01/02/18 21:00 (NS Flush) 2 ml UNSCH PRN IV FLUSH 01/02/18 12:00 (Mylicon Chew) 80 mg QID PRN PO 01/02/18 12:00 (Tylenol) 650 mg Q6H PRN PO 01/02/18 12:00 (Motrin) 600 mg Q6H PRN PO 01/02/18 12:00 01/03/18 06:24 (Toradol Inj) 60 mg UNSCH X1 PRN IM 01/02/18 12:00 01/03/18 11:59 (Toradol Inj) 30 mg Q6H PRN IM 01/02/18 14:00 01/03/18 13:59 01/02/18 16:26 (Percocet 5-325 Mg) 1 tab Q4H PRN PO 01/02/18 12:00 (Percocet 5-325 Mg) 2 tab Q4H PRN PO 01/02/18 12:00 01/03/18 06:24 (Padma-Colace) 2 tab Q12H PRN PO 01/02/18 12:00 (Ambien) 5 mg HS PRN PO 01/02/18 21:00 (M-M-R Ii Inj) 0.5 ml ONCE ONCE SQ 01/03/18 16:00 01/03/18 16:01 (Boostrix Inj) 0.5 ml ONCE ONCE IM 01/03/18 16:00 01/03/18 16:01 (Zofran Inj) 4 mg Q6H PRN IV PUSH 01/02/18 12:00 Miscellaneous Information NO SYSTEMIC NARCOTICS TO BE GIVEN FO... UNSCH PRN .XX 01/02/18 14:00 01/03/18 13:59 (Narcan Inj) 0.4 mg UNSCH PRN IV PUSH 01/02/18 14:00 01/03/18 13:59 (Benadryl Inj) 25 mg Q6H PRN IV PUSH 01/02/18 14:00 01/03/18 13:59 (Benadryl) 50 mg Q6H PRN PO 01/02/18 14:00 01/03/18 13:59 Miscellaneous Information ALL NURSING DEPARTMENTS UNSCH PRN .XX 01/02/18 14:00 01/03/18 13:59 (Benadryl Inj) 25 mg Q6H PRN IV 01/02/18 14:00 Assessment/Plan Assessment and Plan POD 1 RCS with 36 wk twins pt doing well , plan to begin and continue progressive postop course babies are doing well Alessio Loredo II, MD Jan 03, 2018 08:09
[2018-01-03 08:45] VITALS: BP 111/61; PULSE 78; RESP 18; TEMP 97.9
[2018-01-03] MEDS: SODIUM CHLORIDE 0.9% FLUSH 10 ML FLUSH IV FLUSH SCH ×2 (09:00→19:10)
[2018-01-03] MEDS ORDERED: DIPHTH/TETANUS/ACEL PERTUSSIS (BOOSTER) 0.5 ML VIAL/PFS IM ONE (16:00)
[2018-01-03] MEDS ORDERED: MEASLES, MUMPS, RUBELLA VACCINE 0.5 ML VIAL SQ ONE (16:00)
[2018-01-03] MEDS: DOCUSATE SODIUM 50 MG/SENNA 8.6 MG TAB PO PRN (19:44)
[2018-01-03 20:00] VITALS: BP 144/85; PULSE 102; RESP 20; TEMP 97.4
[2018-01-04] MEDS: oxyCODONE/ACETAMINOPHEN 5 MG/325 MG TAB PO PRN ×5 (00:21→21:00)
[2018-01-04] MEDS: IBUPROFEN 600 MG TAB PO PRN ×4 (00:22→16:48)
[2018-01-04 08:00] VITALS: BP 100/69; PULSE 84; RESP 20; TEMP 97.9
--- NOTE | 2018-01-04 08:18 | HHI.OB ---
Subjective Remarks 32 year old female s/p repeat C/S twin 36 wks gestation, POD2. AFVSS. Patient reports she is feeling well. Bleeding is decreasing and pain is well- controlled. She is breast/formula feeding and bonding well with baby. Ambulating without difficulties. She is tolerating a diet without nausea or vomiting. She has not had a bowel movement. She has passed gas. Denies chest pain, dysuria, shortness of breath, or calf pain. Objective Vitals/I&O Vital Signs Date Time Temp Pulse Resp B/P (MAP) Pulse Ox O2 Delivery O2 Flow Rate FiO2 01/03/18 20:00 97.4 102 20 01/03/18 20:00 144/85 (104) 01/03/18 08:45 97.9 78 18 111/61 (78) Result Diagram: 01/03/18 0735 Objective Remarks GENERAL: Well-nourished, well-developed patient. CARDIOVASCULAR: Regular rate and rhythm without murmurs, gallops, or rubs. RESPIRATORY: Breath sounds equal bilaterally. No accessory muscle use. ABDOMEN/GI: Abdomen soft, non-tender, bowel sounds present. Incision: Clean, dry and intact. silver 7 day bandage dry adherent Fundus: Firm, non-tender at umbilicus. GENITOURINARY: Light to moderate bleeding. EXTREMITIES: No cyanosis or edema, non-tender, without signs of DVT. Medications and IVs Current Medications Medications (Trade) Dose Ordered Sig/[place] Route Start Time Stop Time Status Last Admin (NS Flush) 2 ml BID IV FLUSH 01/02/18 21:00 (NS Flush) 2 ml UNSCH PRN IV FLUSH 01/02/18 12:00 (Mylicon Chew) 80 mg QID PRN PO 01/02/18 12:00 (Tylenol) 650 mg Q6H PRN PO 01/02/18 12:00 (Motrin) 600 mg Q6H PRN PO 01/02/18 12:00 01/04/18 06:06 (Percocet 5-325 Mg) 1 tab Q4H PRN PO 01/02/18 12:00 (Percocet 5-325 Mg) 2 tab Q4H PRN PO 01/02/18 12:00 01/04/18 06:06 (Padma-Colace) 2 tab Q12H PRN PO 01/02/18 12:00 01/03/18 19:44 (Ambien) 5 mg HS PRN PO 01/02/18 21:00 (Zofran Inj) 4 mg Q6H PRN IV PUSH 01/02/18 12:00 (Benadryl Inj) 25 mg Q6H PRN IV 01/02/18 14:00 Assessment/Plan Assessment and Plan 32 yo female s/p repeat C/S, with 36 week twins, POD 2 - AFVSS - Continue routine care - Motrin and Percocet PRN pain - Encourage OOB - Pelvic rest x 6 wks. Will need 1 week incision check. - Contraception: Undecided, will discuss with COMPRESSOR STATION OPERATOR at 1 week check up - Anticipate D/C tomorrow Alejandrina Hendricks MD R1 Jan 04, 2018 08:18
[2018-01-04] MEDS ORDERED: OXYC1TAB63 PO (08:22)
[2018-01-04] MEDS ORDERED: IBUP-232 PO (08:22)
--- NOTE | 2018-01-04 08:22 | HHI.DCPOC ---
Discharge Care Plan Diagnosis: (1) Twin delivered by section in hospital Report Symptoms to Your Doctor -Temperature above 100.5 degrees -Redness, of incision or excessive or foul smelling drainage -Unusual pain or calf pain -Increased vaginal bleeding -Painful or difficulty urinating -Feelings of extreme sadness or anxiety after 2 weeks Goals to Promote Your Health * To prevent worsening of your condition and complications * To maintain your health at the optimal level Directions to Meet Your Goals Take your medications as prescribed Follow your dietary instruction Follow activity as directed Ensure plenty of rest for recovery Drink fluids for hydration Keep your appointments as scheduled Take your immunizations and boosters as scheduled If your symptoms worsen call your PCP, if no PCP go to Urgent Care Center or Emergency Room Smoking is Dangerous to Your Health. Avoid second hand smoke Call the 24-hour crisis hotline for domestic abuse at Alejandrina Hendricks MD R1 Jan 04, 2018 08:22
[2018-01-04] MEDS ORDERED: oxyCODONE/ACETAMINOPHEN 5 MG/325 MG TAB PO ONE (08:30)
[2018-01-04] MEDS ORDERED: PERI PO (08:52)
[2018-01-04] MEDS: DOCUSATE SODIUM 50 MG/SENNA 8.6 MG TAB PO PRN (10:29)
[2018-01-04 20:00] VITALS: BP 139/71; PULSE 89; RESP 18; TEMP 97.9
[2018-01-05] MEDS: oxyCODONE/ACETAMINOPHEN 5 MG/325 MG TAB PO PRN ×4 (01:39→13:58)
[2018-01-05] MEDS: IBUPROFEN 600 MG TAB PO PRN ×2 (01:39→09:54)
[2018-01-05 08:00] VITALS: BP 118/68; PULSE 76; RESP 18; TEMP 98.3
--- NOTE | 2018-01-05 08:02 | HHI.OB ---
Subjective Remarks 32 year old female s/p repeat C/S twin 36 wks gestation, POD3. AFVSS. Patient reports she is feeling well. Bleeding is decreasing and pain is well- controlled. She is breast/formula feeding and bonding well with baby. Ambulating without difficulties. She is tolerating a diet without nausea or vomiting. She has not had a bowel movement. She has passed gas. Denies chest pain, dysuria, shortness of breath, or calf pain. Objective Vitals/I&O Vital Signs Date Time Temp Pulse Resp B/P (MAP) Pulse Ox O2 Delivery O2 Flow Rate FiO2 01/04/18 20:00 97.9 89 18 139/71 (93) Result Diagram: 01/03/18 0735 Objective Remarks GENERAL: Well-nourished, well-developed patient. CARDIOVASCULAR: Regular rate and rhythm without murmurs, gallops, or rubs. RESPIRATORY: Breath sounds equal bilaterally. No accessory muscle use. ABDOMEN/GI: Abdomen soft, non-tender, bowel sounds present. Incision: Clean, dry and intact. silver 7 day bandage dry adherent Fundus: Firm, non-tender at umbilicus. GENITOURINARY: Light to moderate bleeding. EXTREMITIES: No cyanosis or edema, non-tender, without signs of DVT. Medications and IVs Current Medications Medications (Trade) Dose Ordered Sig/[place] Route Start Time Stop Time Status Last Admin (NS Flush) 2 ml BID IV FLUSH 01/02/18 21:00 (NS Flush) 2 ml UNSCH PRN IV FLUSH 01/02/18 12:00 (Mylicon Chew) 80 mg QID PRN PO 01/02/18 12:00 (Tylenol) 650 mg Q6H PRN PO 01/02/18 12:00 (Motrin) 600 mg Q6H PRN PO 01/02/18 12:00 01/05/18 01:39 (Percocet 5-325 Mg) 1 tab Q4H PRN PO 01/02/18 12:00 (Percocet 5-325 Mg) 2 tab Q4H PRN PO 01/02/18 12:00 01/05/18 05:45 (Padma-Colace) 2 tab Q12H PRN PO 01/02/18 12:00 01/04/18 10:29 (Ambien) 5 mg HS PRN PO 01/02/18 21:00 (Zofran Inj) 4 mg Q6H PRN IV PUSH 01/02/18 12:00 (Benadryl Inj) 25 mg Q6H PRN IV 01/02/18 14:00 Assessment/Plan Assessment and Plan 32 yo female s/p repeat C/S, with 36 week twins, POD 3 - AFVSS - Continue routine care - Motrin and Percocet PRN pain - Encourage OOB - Pelvic rest x 6 wks. Will need 1 week incision check. - Contraception: Undecided, will discuss with ADMINISTRATION MANAGER at 1 week check up - Anticipate D/C today Alejandrina Hendricks MD R1 Jan 05, 2018 08:02
[2018-01-05] MEDS: DOCUSATE SODIUM 50 MG/SENNA 8.6 MG TAB PO PRN (09:53)
== END 2018-01-05 14:18 | disposition home or self-care (01) | DRG 765 ==
LOC: H2EB 08:08 → H1EA 13:35
PROVIDERS: ADMIT Obstetrics & Gynecology Maternal & Fetal Medicine; ATTEND Obstetrics & Gynecology Maternal & Fetal Medicine
PROC: 10D00Z1 Extraction of Products of Conception, Low, Open Approach (ICD-10-PCS; principal; 2018-01-02)
DX: O34.211 Maternal care for low transverse scar from previous cesarean delivery (principal); O30.033 Twin pregnancy, monochorionic/diamniotic, third trimester; O99.284 Endocrine, nutritional and metabolic diseases complicating childbirth; O26.893 Other specified pregnancy related conditions, third trimester; O32.1XX0 Maternal care for breech presentation, not applicable or unspecified; E78.5 Hyperlipidemia, unspecified; Z37.2 Twins, both liveborn; Z3A.36 36 weeks gestation of pregnancy; Z67.91 Unspecified blood type, Rh negative; Z86.32 Personal history of gestational diabetes
CPT/HCPCS: 59025; 80307; 81001; 82805; 85025; 86850; 86900; 86901; 88307; 90715; J0131; J0171; J0690; J1100; J1200; J1885; J2274; J2370; J2405; J2590; J7120